=== PATIENT | male | born 1935 | race African-American/Black ===

== ENCOUNTER 2018-12-29 15:39 | Emergency (ER) | payer MEDICARE, BC ==
[~2018-12-29] VITALS: Ht 172.7 cm; Wt 78.3 kg
[~2018-12-29 15:39] MED LIST: DOXA2TAB52 PO; DOXY100T20 PO; HYDR1TAB88 PO; LATA2.5D19 OP; SIMV40TA3 PO; TRAM50TA2 PO
[2018-12-29 15:43] VITALS: Ht 172.7 cm; Wt 78.3 kg
[2018-12-30 03:32] VITALS: BP 133/77; PULSE 71; RESP 16
== END 2018-12-30 03:33 | disposition home or self-care (01) ==
LOC: E/R 15:39
DX: N20.0 Calculus of kidney (principal)
CPT/HCPCS: 74176